=== PATIENT | male | born 1945 | race Caucasian/White ===

== ENCOUNTER → 2017-11-30 06:43 | Outpatient (CLI) | payer MEDICARE, OTHER, SELFPAY ==
--- NOTE | 2017-11-30 | DI.MRI.S_ITS ---
PROCEDURE: MR SHOULDER LT WO CON INDICATIONS: LEFT SHOUDER PAIN TECHNIQUE: Noncontrast oblique coronal T2 fast spin echo with fat saturation, oblique sagittal T1 spin echo and T2 fast spin echo with fat saturation, axial T1 spin echo and T2 fast spin echo with fat saturation through the shoulder. COMPARISON: [facility], CR, XR SHOULDER 2+ VIEWS BILATERAL, 11/20/2017, 10:49. FINDINGS: Image quality: Excellent. Rotator cuff: Mild supraspinatus tendinopathy without discrete tear. There is thickening and tendinopathy of the infraspinatus tendon with low-grade bursal surface fraying, and partial thickness articular sided tear of the junction of the critical zone and footprint, for example image 16 series 7. The teres minor appears grossly intact. Partial-thickness articular sided tear of the subscapularis tendon with interstitial extension. There is adjacent focal bone loss image 16 series 4, which could represent associated degenerative cystic change (to exclude erosion contrast-enhanced study would be needed). Recommend clinical correlation. No definite atrophy of the rotator cuff musculature although there is mild fatty infiltration of all of the rotator cuff muscle bellies Bones and bursae: No bone marrow contusions or fractures. There is severe glenohumeral degenerative joint disease. Trace glenohumeral joint effusion Prominent bulky osteophyte formation and subchondral sclerosis/marrow edema is present. Moderate acromioclavicular joint degeneration. The acromion demonstrates conventional anatomy, without an os acromiale. Mild subacromial subcentimeter bursitis. Capsule and soft tissues: Circumferential chronic labral degeneration and fraying, with associated posterior subluxation of the humeral head relative to the glenoid. The long head of the biceps tendon demonstrates normal location and morphology. There is a 7 mm low signal intensity loose body within the biceps tendon sheath image 19 series 3 just below the intertubercular groove. The rotator interval appears normal, without fibrosis. The coracohumeral ligament is normal in thickness. IMPRESSION: Low-grade bursal surface fraying and partial-thickness articular sided tear of the infraspinatus tendon. Mild supraspinatus tendinopathy. Partial-thickness articular sided tear the subscapularis tendon. Adjacent lytic lesion with sclerotic margins presumed associated degenerative intraosseous cystic change (corresponding to the radiographic abnormality discussed on prior study dated 11/20/17). Although if there is clinical concern for erosion, contrast-enhanced MRI could be performed. Circumferential chronic labral degeneration and fraying with associated posterior subluxation of the humeral head relative to the glenoid. Severe glenohumeral degenerative joint disease. Subcentimeter loose body within the long head biceps tendon sheath as above Mild diffuse fatty infiltration of the rotator cuff musculature, without definite atrophy Mild subacromial/subdeltoid bursitis. Dictated by: Sterling Marino M.D. on 11/30/2017 at 8:27 Approved by: Sterling Marino M.D. on 11/30/2017 at 8:40
== END ==
PROVIDERS: Visit Provider Physician Assistant
DX: M19.012 Primary osteoarthritis, left shoulder (principal); M24.012 Loose body in left shoulder; M75.52 Bursitis of left shoulder
CPT/HCPCS: 73221

== ENCOUNTER → 2018-03-01 09:54 | Outpatient (CLI) | payer MEDICARE, OTHER, SELFPAY ==
--- NOTE | 2018-03-01 | DI.CT.S_ITS ---
PROCEDURE: CT HEAD/BRAIN WO/W CON INDICATIONS: HEADACHES TECHNIQUE: 4.5 mm thick angled axial sections acquired from the foramen magnum to the vertex both before and after the administration of intravenous contrast, with coronal and sagittal reformats. For radiation dose reduction, the following was used: automated exposure control, adjustment of mA and/or kV according to patient size. COMPARISON: [facility], MR, ANGIOGRAM HEAD WITHOUT CONTRAS, 09/04/2006, 8:29. [facility], MR, BRAIN WITHOUT CONTRAST, 09/04/2006, 8:42. FINDINGS: Image quality: Excellent. CSF spaces: Basal cisterns are patent. No extra-axial fluid collections. Ventricles are symmetric in size and shape. Brain: No midline shift. No intracranial bleeds or masses. No abnormal intracranial enhancement. There is cerebral volume loss for age. There is periventricular white matter chronic small vessel ischemic change. There is intracranial internal carotid artery atherosclerosis. Skull and face: Calvarium and visualized facial bones appear intact, without suspicious lesions. Sinuses: Visualized sinuses and mastoids are clear. IMPRESSION: Normal study (performed without and with contrast), without an imaging explanation for the patient's presenting history of headaches. No masses or abnormal enhancement can be seen. Dictated by: Shahab Valdes M.D. on 03/01/2018 at 9:53 Approved by: Shahab Valdes M.D. on 03/01/2018 at 9:55
== END ==
PROVIDERS: PCP Physician Assistant; Visit Provider Internal Medicine
DX: R51 Headache (principal)
CPT/HCPCS: 70470

== ENCOUNTER → 2018-12-10 16:49 | Outpatient (CLI) | payer MEDICARE, OTHER, SELFPAY ==
--- NOTE | 2018-12-10 16:53 | DI.MRI.S_ITS ---
PROCEDURE: MR HEAD/BRAIN WO/W CON INDICATIONS: HEADACHE TECHNIQUE: Noncontrast axial T1 spin echo, axial T2 fast spin echo, sagittal and axial FLAIR, coronal T2 fast spin echo, axial gradient echo, axial diffusion and ADC through the brain. After the administration of contrast, axial and coronal T1 spin echo with fat saturation through the brain. COMPARISON: [facility], MR, BRAIN WITHOUT CONTRAST, 09/04/2006, 8:42. [facility], CT, CT HEAD/BRAIN WO/W CON, 03/01/2018, 10:00. FINDINGS: Image quality: Excellent. CSF spaces: Basal cisterns are patent. No extra-axial fluid collections. Ventricles are normal in size and shape. Brain: No midline shift. No intracranial bleeds or masses. No abnormal intracranial enhancement. There is cerebral volume loss for age. There is periventricular white matter chronic small vessel ischemic change. The brainstem appears normal. Diffusion-weighted images demonstrate no acute ischemic insults. No chronic ischemic insults. Normal intravascular flow voids are present. Skull and face: Calvarial marrow is normal in signal. Orbits appear normal. Sinuses: Sinuses and mastoids appear clear. IMPRESSION: Unremarkable intracranial study, without an imaging explanation found for the patient's presenting history of headache. No masses or abnormal enhancement can be seen. Note is made of age-appropriate brain parenchymal volume loss and chronic small vessel ischemic changes. Dictated by: Shahab Valdes M.D. on 12/10/2018 at 16:52 Approved by: Shahab Valdes M.D. on 12/10/2018 at 16:53
== END ==
PROVIDERS: Visit Provider Student in an Organized Health Care Education/Training Program
DX: R51 Headache (principal)
CPT/HCPCS: 70553; A9579

== ENCOUNTER → 2019-07-10 15:02 | Outpatient (ROUT) | payer MEDICARE, OTHER, SELFPAY ==
[2019-07-10 15:11] LABS: Add Manual Diff / Slide Review NO; Basophils Absolute Auto 0 /uL (0-100); Basophils Percent Auto 0.6 % (0-2); Eosinophils Absolute Auto 100 /uL (0-450); Eosinophils Percent Auto 1.4 % (2-4); Hematocrit 42.4 % (41-53); Hemoglobin 14.5 g/dL (13.5-17.5); Lymphocytes Absolute Auto 600 /uL (1100-4500); Mean Corpuscular HGB Conc 34.1 % (30-36); Mean Corpuscular Hemoglobin 32.8 PG (26-34); Mean Corpuscular Volume 96.1 fL (80-100); Monocytes Absolute Auto 500 /uL (0-900); Monocytes Percent Auto 12.2 % (3-14); Neutrophils Absolute Auto 3200 /uL (1500-7000); Neutrophils Percent Auto 71.8 % (50-75); Platelet Count 188 X10^3/uL (150-400); Red Blood Cell Count 4.42 X10^6/uL (4.5-5.9); White Blood Cell Count 4.5 X10^3/uL (4.5-11.0)
[2019-07-10 15:17] LABS: Alanine Aminotransferase 21 IU/L (<50); Albumin Globulin Ratio 1.8 (1.0-2.8); Alkaline Phosphatase 79 U/L (38-126); Aspartate Aminotransferase 28 IU/L (17-59); BUN Creatinine Ratio 21.4 (6-22); Bilirubin Total 0.4 mg/dL (0.2-1.3); Blood Urea Nitrogen 15 mg/dL (9-20); Calcium 9.5 mg/dL (8.4-10.2); Carbon Dioxide 28 mmol/L (22-32); Chloride 103 mmol/L (98-107); Estimated Glomerular Filt Rate > 60.0 mL/min (>60); Globulin 2.2 g/dL (1.7-4.1); Glucose 99 mg/dL (80-110); HEMOLYSIS < 15 (0-50); Lipase 98 U/L (23-300); Potassium 4.8 mmol/L (3.4-5.1); Sodium 138 mmol/L (137-145); Total Protein 6.2 g/dL (6.3-8.2)
== END ==
PROVIDERS: PCP Student in an Organized Health Care Education/Training Program; Visit Provider Student in an Organized Health Care Education/Training Program
DX: R10.30 Lower abdominal pain, unspecified (principal)
CPT/HCPCS: 80053; 83690; 85025; 87086

== ENCOUNTER → 2019-07-14 09:52 | Outpatient (CLI) | payer MEDICARE, OTHER, SELFPAY ==
--- NOTE | 2019-07-14 10:15 | DI.CT.S_ITS ---
PROCEDURE: CT ABDOMEN PELVIS W CON INDICATIONS: lower abdominal pain, unspecified TECHNIQUE: After the administration of oral and intravenous contrast, 5 mm thick sections acquired from the diaphragms to the symphysis. 5 mm thick coronal and sagittal reformats were performed. For radiation dose reduction, the following was used: automated exposure control, adjustment of mA and/or kV according to patient size. COMPARISON: None. FINDINGS: Image quality: Excellent. ABDOMEN: Lung bases: Lung bases are clear. Heart size is normal. Solid organs: Liver is normal in size and enhancement. Gallbladder is unremarkable. Biliary system is non-dilated. Pancreas enhances normally. Spleen is normal in size and enhancement. No adrenal nodules. Kidneys are normal in size and enhancement, without hydronephrosis. Small renal cyst in the left kidney. Peritoneum and bowel: Stomach is decompressed. Small bowel, and colon loops are normal in caliber and wall thickness. Sigmoid colon the anastomosis. Scattered colonic diverticuli. The appendix is not seen. No free fluid or air. Nodes and vessels: No retroperitoneal or mesenteric adenopathy. Aorta and inferior vena cava are normal in caliber. Moderate calcified plaque at the SMA origin. Miscellaneous: Small fat containing ventral abdominal wall hernia. PELVIS: Genitourinary: Bladder wall thickness is normal. Miscellaneous: No inguinal hernias or adenopathy. Bones: No suspicious bony lesions. Lumbar spine scoliosis. DDD. No vertebral body compression fractures. IMPRESSION: Negative exam. No abnormality identified to explain the lower abdominal pain. Sigmoid colon anastomosis. Diverticulosis. Dictated by: Shankar Ryan M.D. on 07/14/2019 at 12:43 Approved by: Shankar Ryan M.D. on 07/14/2019 at 12:55
[2019-07-14 10:51] LABS: Add Manual Diff / Slide Review NO; Basophils Absolute Auto 0 /uL (0-100); Basophils Percent Auto 0.8 % (0-2); Eosinophils Absolute Auto 100 /uL (0-450); Eosinophils Percent Auto 1.6 % (2-4); Hematocrit 43.7 % (41-53); Hemoglobin 14.6 g/dL (13.5-17.5); Lymphocytes Absolute Auto 800 /uL (1100-4500); Lymphocytes Percent Auto 17.1 % (25-40); Mean Corpuscular HGB Conc 33.5 % (30-36); Mean Corpuscular Hemoglobin 32.2 PG (26-34); Mean Corpuscular Volume 96.2 fL (80-100); Monocytes Absolute Auto 500 /uL (0-900); Monocytes Percent Auto 9.7 % (3-14); Neutrophils Absolute Auto 3500 /uL (1500-7000); Neutrophils Percent Auto 70.8 % (50-75); Platelet Count 218 X10^3/uL (150-400); Red Blood Cell Count 4.54 X10^6/uL (4.5-5.9); White Blood Cell Count 4.9 X10^3/uL (4.5-11.0)
[2019-07-14 11:19] LABS: Alanine Aminotransferase 27 IU/L (<50); Albumin 4.2 g/dL (3.5-5.0); Albumin Globulin Ratio 1.8 (1.0-2.8); Alkaline Phosphatase 76 U/L (38-126); Aspartate Aminotransferase 44 IU/L (17-59); Bilirubin Total 0.4 mg/dL (0.2-1.3); Blood Urea Nitrogen 12 mg/dL (9-20); Calcium 9.3 mg/dL (8.4-10.2); Carbon Dioxide 28 mmol/L (22-32); Chloride 105 mmol/L (98-107); Estimated Glomerular Filt Rate > 60.0 mL/min (>60); Globulin 2.4 g/dL (1.7-4.1); Glucose 102 mg/dL (80-110); HEMOLYSIS < 15 (0-50); Potassium 4.6 mmol/L (3.4-5.1); Sodium 140 mmol/L (137-145); Total Protein 6.6 g/dL (6.3-8.2)
== END ==
PROVIDERS: PCP Student in an Organized Health Care Education/Training Program; Visit Provider Student in an Organized Health Care Education/Training Program
DX: R10.30 Lower abdominal pain, unspecified (principal); D72.810 Lymphocytopenia; K57.90 Diverticulosis of intestine, part unspecified, without perforation or abscess without bleeding; K43.9 Ventral hernia without obstruction or gangrene; M41.9 Scoliosis, unspecified; M51.36 Other intervertebral disc degeneration, lumbar region; Z98.0 Intestinal bypass and anastomosis status
CPT/HCPCS: 36415; 74177; 80053; 85025; Q9967

== ENCOUNTER → 2019-08-01 12:37 | Outpatient (CLI) | payer MEDICARE, OTHER, SELFPAY | PROVIDERS: PCP Student in an Organized Health Care Education/Training Program; Visit Provider Student in an Organized Health Care Education/Training Program | DX: D72.810 Lymphocytopenia (principal) | CPT/HCPCS: 36415 ==

== ENCOUNTER → 2023-04-02 10:24 | Outpatient (CLI) | payer MEDICARE, OTHER, SELFPAY ==
--- NOTE | 2023-04-02 | DI.CT.S_ITS ---
PROCEDURE: CT ABDOMEN PELVIS WO CON INDICATIONS: Lower abdominal pain, unspecified TECHNIQUE: After the administration of oral contrast, 5 mm thick sections acquired from the diaphragms to the symphysis. 5 mm coronal and sagittal reformats were performed. For radiation dose reduction, the following was used: automated exposure control, adjustment of mA and/or kV according to patient size. COMPARISON: None. FINDINGS: Lower thorax: The lung bases are clear. Heart size normal. No hiatal hernia. Liver: Normal in size and attenuation. No contour deformity present. Biliary system: No calcified cholelithiasis or pericholecystic inflammation. No intra or extrahepatic bile duct dilatation. Pancreas: Unremarkable without mass or inflammation evident. Spleen: Normal in size and density. Adrenals: Normal morphology and density. Reproductive system: Unremarkable as visualized. Urinary system: Normal renal size and attenuation. No renal calculi, hydronephrosis, or solid mass present. Urinary bladder unremarkable. Gastrointestinal system: The bowel is unremarkable without evidence of bowel obstruction or inflammation. The stomach appears unremarkable. Multiple diverticula arise from the sigmoid colon without evidence of diverticulitis. Moderate fecal debris throughout the colon. Sigmoid suture line Appendix: No findings to suggest acute appendicitis. Peritoneal spaces: No mesenteric or retroperitoneal adenopathy. No free air. No free fluid. Vasculature: The IVC, aorta and iliac vasculature are unremarkable. Abdominal wall: Abdominal wall intact without evidence of ventral or inguinal hernias. Musculoskeletal: Normal bone mineralization. Degenerative disc disease and arthropathy noted in lower lumbar spine. Degenerative convex right lumbar scoliosis and severe central stenosis L3-4. No acute fractures. Benign-appearing right iliac 1 cm osteoma IMPRESSION: 1. No acute CT findings in the abdomen and pelvis. 2. Descending colon diverticulosis without diverticulitis. Sigmoidectomy with suture line intact. Moderate fecal debris throughout the colon. 3. Additional chronic findings as above Approved by: Rod Herring M.D. on 04/02/2023 at 16:04
== END ==
PROVIDERS: PCP Student in an Organized Health Care Education/Training Program; Referring Provider Student in an Organized Health Care Education/Training Program; Visit Provider Student in an Organized Health Care Education/Training Program
DX: K57.30 Diverticulosis of large intestine without perforation or abscess without bleeding (principal); R10.30 Lower abdominal pain, unspecified
CPT/HCPCS: 74176